=== PATIENT | female | born 1970 | race African-American/Black ===

== ENCOUNTER 2019-12-13 | Emergency (ER) | payer SELFPAY ==
[2019-12-13] MEDS ORDERED: Ketorolac Tromethamine 30 MG/ML VIAL ONE (01:12)
[2019-12-13 01:16] LABS: Bilirubin Negative (Negative); Blood, Urine Negative (Negative); Clarity Clear (Clear); Glucose, Urine (Dipstick) Normal (Negative); Leukocyte Negative Leu/uL (Negative); Nitrite Negative (Negative); Protein, Urine (Dipstick) 20 mg/dL (Neg-Trace)
== END 2019-12-13 01:40 | disposition home or self-care (01) ==
LOC: ERS
DX: M54.5 Low back pain (principal); F17.210 Nicotine dependence, cigarettes, uncomplicated; F41.9 Anxiety disorder, unspecified; E11.9 Type 2 diabetes mellitus without complications; I10 Essential (primary) hypertension; Z79.899 Other long term (current) drug therapy
CPT/HCPCS: 36416; 81003; 96372; 99283; J1885